=== PATIENT | female | born 1985 | race Caucasian/White ===

== ENCOUNTER 2017-04-15 23:11 | Emergency (ER) | payer OTHER ==
[~2017-04-15] VITALS: Ht 165.1 cm; Wt 63.5 kg
[2017-04-15 23:12] VITALS: BP 120/86
--- NOTE | 2017-04-15 23:13 | NUR ---
Pt placed in bed 9 by EMS.
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
--- NOTE | 2017-04-15 23:34 | NUR ---
Patient being evaluated by Dr. Morgan at bedside.
[2017-04-15] MEDS ORDERED: KETOROLAC 60 MG/2 ML VIAL IM ONE (23:50)
--- NOTE | 2017-04-15 23:55 | NUR ---
[place] [employer] Officer King at bedside.
--- NOTE | 2017-04-16 00:55 | NUR ---
Pt back from CT and placed in bed 9. [place] [employer] at bedside and is now going to pre-book patient.
[2017-04-16 01:47] VITALS: BP 119/75
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
== END 2017-04-16 01:47 ==
LOC: MED 23:11
DX: M54.2 Cervicalgia (principal); M25.572 Pain in left ankle and joints of left foot; Y04.2XXA Assault by strike against or bumped into by another person, initial encounter; Y93.89 Activity, other specified; Y92.89 Other specified places as the place of occurrence of the external cause; Y99.8 Other external cause status
CPT/HCPCS: 72125; 73700; 81025; 96372; 99284; J1885